=== PATIENT | female | born 1930 | race Asian ===

== ENCOUNTER 2021-05-21 21:00 | Inpatient (IN) | payer OTHER ==
[~2021-05-21] VITALS: Ht 160 cm; Wt 66.2 kg
[2021-05-21] MEDS ORDERED: IV NS 0.9% 1,000 ML BAG IV ONE (22:00)
[2021-05-21] MEDS ORDERED: MORPHINE SULFATE INJ 2 MG/ML DISP.SYRIN IV ONE (22:00)
[2021-05-21] MEDS ORDERED: ONDANSETRON HCL/PF 4 MG/2 ML VIAL IVP ONE (22:00)
--- NOTE | 2021-05-21 22:01 | NUR ---
IV LINE ESTABLISH L AC #20G AND CONVERTED TO SALINE LOCK. LABS WERE COLLECTED AND SENT.
[2021-05-21] MEDS ORDERED: ONDANSETRON HCL/PF 4 MG/2 ML VIAL ONE (22:09)
[2021-05-21] MEDS ORDERED: MORPHINE SULFATE INJ 4 MG/ML DISP.SYRIN ONE (22:09)
[2021-05-21 22:21] LABS: BILIRUBIN,URINE NEGATIVE (NEGATIVE); COLOR,URINE YELLOW (YELLOW); LEUKOCYTE ESTERASE ,URINE NEGATIVE (NEGATIVE); NITRITE, URINE NEGATIVE (NEGATIVE); PH,URINE 6.5 (5.0-8.0); PROTEIN,URINE 30 mg/dl (NEGATIVE); UGLUCOSE NEGATIVE (NEGATIVE); UROBILINOGEN,URINE 0.2 EU/dL (0.2)
[2021-05-21 22:24] LABS: BASOPHILS # (AUTO) 0.1 K/uL (0.0-0.2); BASOPHILS % (AUTO) 0.9 % (0.0-2.0); EOSINOPHILS % (AUTO) 0.4 % (0.0-6.0); HEMATOCRIT 43 % (33-45); HEMOGLOBIN 14.2 g/dL (11.5-14.8); LYMPHOCYTES # (AUTO) 0.8 K/uL (0.8-4.8); LYMPHOCYTES % (AUTO) 7.6 % (20.0-44.0); MEAN CORPUSCULAR HGB CONC 33 g/dl (31.0-36.0); MEAN CORPUSCULAR VOLUME 78 fL (82-100); MONOCYTES # (AUTO) 0.8 K/uL (0.1-1.30); MONOCYTES % (AUTO) 7.2 % (2.0-12.0); NEUTROPHILS # (AUTO) 8.9 K/uL (1.8-8.9); NEUTROPHILS % (AUTO) 83.9 % (43.0-81.0); PLATELET COUNT (AUTO) 207 K/uL (150-450); RED BLOOD CELL COUNT(AUTO) 5.56 MIL/uL (4.0-5.2); WHITE BLOOD COUNT (AUTO) 10.6 K/uL (4.3-11.0)
[2021-05-21 22:39] LABS: BACTERIA,URINE None seen /HPF (None Seen); MUCUS,URINE Few /LPF (None Seen); SQUAMOUS EPITHELIAL CELL,UR Few /HPF (None Seen); URINE AMORPHOUS URATE Moderate /HPF (None Seen); WBC,URINE 0-2 /HPF (0-3)
[2021-05-21 22:57] LABS: CALCIUM, SERUM 9.2 mg/dL (8.5-10.1); CARBON DIOXIDE 31 mmol/L (21-32); CHLORIDE 102 mmol/L (98-107); CREATININE 0.8 mg/dL (0.6-1.3); GLUCOSE 128 mg/dL (74-106); POTASSIUM 3.8 mmol/L (3.5-5.1); SODIUM SERUM 138 mmol/L (136-145); UREA NITROGEN, BLOOD 15 mg/dL (7-18)
[2021-05-21 23:03] LABS: ALANINE AMINOTRANSFERASE 28 U/L (12-78); ALBUMIN 3.7 g/dL (3.4-5.0); ALKALINE PHOSPHATASE 56 U/L (46-116); ASPARTATE AMINOTRANSFERASE 26 U/L (15-37); BILIRUBIN,DIRECT 0.2 mg/dL (0.0-0.2); BILIRUBIN,TOTAL 0.7 mg/dL (0.2-1.0); LIPASE 43 U/L (73-393); TOTAL PROTEIN, SERUM 7.4 g/dL (6.4-8.2)
[2021-05-21] MEDS ORDERED: IOHEXOL-300 100 ML VIAL IV ONE (23:09)
[2021-05-21] MEDS ORDERED: CT SWABBABLE VALVE TRANS SET 1 EA INFUS.SET MC ONE (23:09)
[2021-05-21] MEDS ORDERED: IV NS 0.9% 500 ML IV ONE (23:09)
--- NOTE | 2021-05-21 23:21 | NUR ---
PATIENT RETURNED FROM CT
[2021-05-22] MEDS ORDERED: KETOROLAC TROMETHAMINE 15 MG/ML VIAL ONE (00:12)
[2021-05-22] MEDS ORDERED: KETOROLAC TROMETHAMINE INJ 30 MG/ML VIAL IV ONE (00:30)
--- NOTE | 2021-05-22 00:44 | NUR ---
CALLED [facility] FOR CXR AND CT READ
--- NOTE | 2021-05-22 01:07 | NUR ---
Damon hernandez in [facility] - 05/22/21 at [address] FERNANDEZ ON THE PHONE W/ DR GUALLPA
--- NOTE | 2021-05-22 01:11 | NUR ---
PAGED DR MONROE, GENRAL SURGEON
[2021-05-22] MEDS ORDERED: PIPERACILLIN /TAZOBACTAM 2.25 G in IV D5W 50 ML IV ONE (01:30)
[2021-05-22] MEDS ORDERED: PIPERACILLIN /TAZOBACTAM 2.25 G VIAL IV ONE (01:36)
--- NOTE | 2021-05-22 02:23 | NUR ---
[facility] SWAB COLLECTED AND SENT TO LAB. PATIENT'S BELONGINGS LIST DONE.
[2021-05-22] MEDS ORDERED: ACETAMINOPHEN 325 MG TABLET PO PRN (02:30)
[2021-05-22] MEDS: ENOXAPARIN SODIUM 40 MG/0.4 ML DISP.SYRIN SQ SCH ×2 (02:30→20:18)
[2021-05-22] MEDS ORDERED: ONDANSETRON HCL/PF 4 MG/2 ML VIAL IVP PRN (02:30)
[2021-05-22] MEDS ORDERED: hydrALAZINE HCL IV 20 MG VIAL IV PRN (02:30)
[2021-05-22] MEDS ORDERED: MORPHINE SULFATE INJ 2 MG/ML DISP.SYRIN IV PRN (02:30)
[2021-05-22] MEDS ORDERED: MAGNESIUM HYDROXIDE 30 ML UDC PO PRN (02:30)
[2021-05-22] MEDS ORDERED: MAG HYDROX/AL HYDROX/SIMETH 30 ML UDC PO PRN (02:30)
--- NOTE | 2021-05-22 03:10 | NUR ---
held lovenox for possible sx. md beverley sanchez
[2021-05-22] MEDS: IV NS 0.9% 1,000 ML IV PRN ×2 (05:13→20:18)
[2021-05-22] MEDS: CEFEPIME 1 GM in IV D5W 50 ML IV SCH (09:00)
[2021-05-22] MEDS ORDERED: CHOL200010 PO (10:27)
[2021-05-22] MEDS ORDERED: DOCU100C58 PO (10:27)
[2021-05-22] MEDS ORDERED: ATOR10TA PO (10:27)
--- NOTE | 2021-05-22 10:36 | NUR ---
ECHOCARDIOGRAM ONGOING AT BEDSIDE
--- NOTE | 2021-05-22 18:55 | NUR ---
GOT BED 324-2 AFTER CHANGE OF SHIFT.
--- NOTE | 2021-05-22 19:36 | NUR ---
report given to jose day for santana
--- NOTE | 2021-05-22 19:40 | NUR ---
pt going up to unit on gurney with emt at bedside on stable condition.
[2021-05-22 20:00] VITALS: BP 143/80
--- NOTE | 2021-05-22 20:00 | NUR ---
MS/RN OPENING NOTE RECEIVED REPORT FROM SWINE NUTRITIONIST GENTRY. PATIENT ARRIVED TO UNIT VIA GURNEY AND STAFF MEMBER. PATIENT IS BEING ADMITTED WITH DX OF APPENDICITIS. PAST MEDICAL HX OF HTN AND HLD. FAMILY AT BEDSIDE. PATIENT IS ALERT AND ORIENTED X 4. PRIMARILY [place] SPEAKING. DENIES PAIN AT THIS TIME. CONTINUES ON ROOM AIR WITH NO S/SX OF RESPIRATORY DISTRESS NOTED. IV ACCESS TO LEFT HAND # 22G INTACT AND PATENT. ABDOMEN IS SOFT AND TENDER ON LLQ. SKIN CHECK PERFORMED ON ADMISSION WITH RED DISCOLORATIONS ON ABDOMEN AND CHEST. PICTURES TAKEN AND PLACED IN CHART. PATIENT TO BE NPO AT MIDNIGHT FOR POSSIBLE SURGERY AND CARDIOLOGY CONSULT IN AM. PATIENT AND FAMILY AWARE OF PLAN OF CARE. PATIENT ORIENTED TO ROOM, CALL LIGHT AND UNIT. CALL LIGHT WITHIN REACH. ASPIRATION, FALL AND SAFETY PRECAUTIONS MAINTAINED. WILL CONTINUE TO MONITOR. Addendum: 05/22/21 at 2050 by FALLON COATES RN CORRECTION: ABDOMEN IS SOFT AND TENDER TO RLQ.
--- NOTE | 2021-05-22 20:23 | NUR ---
MS/RN NOTE HOLDING LOVENOX FOR POSSIBLE SURGERY TOMORROW.
--- NOTE | 2021-05-22 21:28 | NUR ---
MS/RN NOTE PATIENTS QIPANTOS-JM-GDT TOEUP PHONE # [phone]. PATIENTS DAUGHTER AFSHIN PHONE # [phone]. STATED WE MAY CONTACT THEM AT ANY TIME. Addendum: 05/22/21 at 2131 by FALLON COATES RN AFSHIN IS PATIENTS SISTER - NOT DAUGHTER.
[2021-05-23] VITALS (7 sets, daily range): BP systolic 125–167; BP diastolic 65–89
[2021-05-23] MEDS: IV NS 0.9% 1,000 ML IV PRN ×2 (05:51→15:38)
--- NOTE | 2021-05-23 06:30 | NUR ---
MS/RN CLOSING NOTE PATIENT CURRENTLY SLEEPING IN BED. ALERT AND ORIENTED X 4. ABLE TO MAKE NEEDS KNOWN. DENIES PAIN AT THIS TIME. CONTINUES ON ROOM AIR WITH NO S/SX OF RESPIRATORY DISTRESS NOTED. IV ACCESS TO LEFT HAND #20G INTACT AND PATENT. CONTINUES ON IVF NS 0.9% @ 75ML/HR. CONTINUES ON IV ABX. CONTINUES ON NPO STATUS FOR POSSIBLE SURGERY TODAY. CALL LIGHT WITHIN REACH. ASPIRATION, FALL AND SAFETY PRECAUTIONS MAINTAINED. WILL CONTINUE TO MONITOR.
--- NOTE | 2021-05-23 07:30 | NUR ---
MS RN OPENING NOTES RECEIVED PATIENT SITTING ON BED, AWAKE AND A/O X 4. [place] SPEAKING WITH DAUGHTER AT BEDSIDE. ON ROOM AIR BREATHING EVENLY AND UNLABORED. WITH IV ACCESS TO LEFT HAND #20G WITH IVF NS 0.9% @ 75ML/HR INFUSING. ON NPO FOR LAPAROSCOPIC APPENDECTOMY POSSIBLE OPEN. SAFETY MEASURES IN PLACE. CALL LIGHT WITHIN REACH. BED ON LOWEST LOCKED POSITION, SIDE RAILS UP X2. WILL CONTINUE TO MONITOR.
[2021-05-23] MEDS ORDERED: ANESTHESIA TRAY IN PYXIS 1 EA TRAY MC ONE (08:34)
[2021-05-23] MEDS ORDERED: BUPIVACAINE 0.5 % PF 150 MG/30 ML VIAL ONE (08:35)
[2021-05-23 09:11] LABS: EOSINOPHILS % (AUTO) 1.9 % (0.0-6.0); HEMATOCRIT 40 % (33-45); HEMOGLOBIN 12.9 g/dL (11.5-14.8); LYMPHOCYTES # (AUTO) 0.9 K/uL (0.8-4.8); LYMPHOCYTES % (AUTO) 17.1 % (20.0-44.0); MEAN CORPUSCULAR HGB CONC 33 g/dl (31.0-36.0); MEAN CORPUSCULAR VOLUME 78 fL (82-100); MONOCYTES # (AUTO) 0.5 K/uL (0.1-1.30); NEUTROPHILS # (AUTO) 3.7 K/uL (1.8-8.9); PLATELET COUNT (AUTO) 185 K/uL (150-450); RED BLOOD CELL COUNT(AUTO) 5.07 MIL/uL (4.0-5.2); WHITE BLOOD COUNT (AUTO) 5.3 K/uL (4.3-11.0)
[2021-05-23 09:44] LABS: ALBUMIN 2.9 g/dL (3.4-5.0); BILIRUBIN,TOTAL 0.7 mg/dL (0.2-1.0); CALCIUM, SERUM 8.2 mg/dL (8.5-10.1); CREATININE 0.7 mg/dL (0.6-1.3); MAGNESIUM 2.1 mg/dL (1.8-2.4); PHOSPHORUS 2.8 mg/dL (2.5-4.9); POTASSIUM 3.5 mmol/L (3.5-5.1); TOTAL PROTEIN, SERUM 6.5 g/dL (6.4-8.2)
[2021-05-23] MEDS ORDERED: ROCURONIUM BROMIDE 50 MG/5 ML ONE (11:24)
[2021-05-23] MEDS ORDERED: HYDROMORPHONE INJ 2 MG/ML DISP.SYRIN ONE (11:24)
[2021-05-23] MEDS ORDERED: DESFLURANE 240 ML BOTTLE IH ONE (12:07)
[2021-05-23] MEDS ORDERED: HYDROCODONE/APAP 5/325MG TABLET PO PRN (14:00)
--- NOTE | 2021-05-23 18:57 | NUR ---
MS RN CLOSING NOTES PATIENT RESTING ON BED, AWAKE AND A/O X 4. FIJ[place] SPEAKING WITH DAUGHTER AT BEDSIDE. ON ROOM AIR BREATHING EVENLY AND UNLABORED. WITH IV ACCESS TO LEFT HAND #20G WITH IVF NS 0.9% @ 75ML/HR INFUSING. S/P APPENDECTOMY WITH STABLE VITAL SIGNS. SAFETY MEASURES IN PLACE. CALL LIGHT WITHIN REACH. BED ON LOWEST LOCKED POSITION, SIDE RAILS UP X2. WILL ENDORSE TO NEXT SHIFT FOR SATHISH.
--- NOTE | 2021-05-23 19:24 | NUR ---
MS RN OPENING NOTES RECEIVED PATIENT RESTING ON BED, AWAKE AND A/O X 4. [place] SPEAKING. PT. ON ROOM AIR BREATHING EVENLY AND UNLABORED. IN NO APPARENT DISTRESS NOTED. PT.WITH IV ACCESS TO LEFT HAND #20G WITH IVF NS 0.9% @ 75ML/HR INFUSING. PT. S/P APPENDECTOMY, IN STABLE CONDITION. SAFETY MEASURES IN PLACE. CALL LIGHT WITHIN REACH. BED ON LOWEST LOCKED POSITION, SIDE RAILS UP X2. WILL CONTINUE TO MONITOR PT. ACCDGLY.
[2021-05-23] MEDS: ENOXAPARIN SODIUM 40 MG/0.4 ML DISP.SYRIN SQ SCH (21:45)
[2021-05-24] MEDS: IV NS 0.9% 1,000 ML IV PRN (06:20)
--- NOTE | 2021-05-24 07:07 | NUR ---
MS RN CLOSING NOTES PATIENT RESTING ON BED, AWAKE AND A/O X 4. [place] SPEAKING. PT. ON ROOM AIR BREATHING EVENLY AND UNLABORED. IN NO APPARENT DISTRESS NOTED. PT.WITH IV ACCESS TO LEFT HAND #20G WITH IVF NS 0.9% @ 75ML/HR INFUSING. PT. S/P APPENDECTOMY, IN STABLE CONDITION. ALL NEEDS ATTENDED. SAFETY MEASURES IN PLACE. CALL LIGHT WITHIN REACH. BED ON LOWEST LOCKED POSITION, SIDE RAILS UP X2. WILL ENDORSED PT. TO DAYTIME SHIFT NURSE FOR SATHISH
[2021-05-24 07:14] LABS: CALCIUM, SERUM 8.5 mg/dL (8.5-10.1); CREATININE 0.7 mg/dL (0.6-1.3)
--- NOTE | 2021-05-24 07:30 | NUR ---
MS RN OPENING NOTES RECEIVED PATIENT ON BED, RESTING ON BED AND A/O X4. CITIZEN OF [place] SPEAKING. ON ROOM AIR BREATHING EVENLY AND UNLABORED. WITH NO COMPLAINTS OF PAIN AT THIS TIME. WITH IV ACCESS AT LEFT HAND G20 WITH NS AT 75ML/HR INFUSING WELL. SAFETY MEASURES IN PLACE. CALL LIGHT WITHIN REACH. BED ON LOWEST LOCKED POSITION, SIDE RAILS UP X2. WILL CONTINUE TO MONITOR.
[2021-05-24 08:00] VITALS: BP 155/78
[2021-05-24] MEDS: CEFEPIME 1 GM in IV D5W 50 ML IV SCH (08:26)
[2021-05-24 08:46] LABS: BASOPHILS % (AUTO) 0.7 % (0.0-2.0); EOSINOPHILS % (AUTO) 0.6 % (0.0-6.0); HEMATOCRIT 39 % (33-45); HEMOGLOBIN 12.5 g/dL (11.5-14.8); LYMPHOCYTES % (AUTO) 16.4 % (20.0-44.0); MEAN CORPUSCULAR HGB CONC 32 g/dl (31.0-36.0); MEAN CORPUSCULAR VOLUME 78 fL (82-100); MONOCYTES # (AUTO) 0.7 K/uL (0.1-1.30); MONOCYTES % (AUTO) 10.8 % (2.0-12.0); NEUTROPHILS # (AUTO) 4.5 K/uL (1.8-8.9); NEUTROPHILS % (AUTO) 71.5 % (43.0-81.0); PLATELET COUNT (AUTO) 200 K/uL (150-450); RED BLOOD CELL COUNT(AUTO) 5.01 MIL/uL (4.0-5.2); WHITE BLOOD COUNT (AUTO) 6.3 K/uL (4.3-11.0)
[2021-05-24] MEDS ORDERED: HYDR-3972 PO (13:21)
--- NOTE | 2021-05-24 17:50 | NUR ---
MS RETORT LOAD EXPEDITER NOTES PATIENT WAS SEEN BY DR. DIAMOND AND ORDERED PATIENT FOR DISCHARGE TO HOME. DISCHARGE INSTRUCTION AND EDUCATION PROVIDED TO PATIENT AND EXPLAINED MEDICATIONS AND PRESCRIPTIONS. PATIENT VERBALIZED UNDERSTANDING. DISCHARGE FORM AND BELONGINGS LIST FORM SIGNED BY PATIENT. ALL BELONGINGS ACCOUNTED FOR. NAME WRIST BAND AND IV LINE REMOVED. PATIENT WAS ACCOMPANIED TO THE LOBBY VIA WHEELCHAIR. ASSISTED PATIENT TO THE LOBBY VIA WHEELCHAIR AND WAS PICKED UP BY DAUGHTER IN STABLE CONDITION. MD AND CHARGE NURSE ARE AWARE OF THE DISCHARGE.
--- NOTE | 2021-05-24 18:54 | NUR ---
MS DOMINGUEZPRODUCTION CONSULTANT NOTES PATIENT WAS SEEN BY DR. DIAMOND AND ORDERED PATIENT FOR DISCHARGE TO HOME. DISCHARGE INSTRUCTION AND EDUCATION PROVIDED TO PATIENT AND EXPLAINED MEDICATIONS AND PRESCRIPTIONS. PATIENT VERBALIZED UNDERSTANDING. DISCHARGE FORM AND BELONGINGS LIST FORM SIGNED BY PATIENT. ALL BELONGINGS ACCOUNTED FOR. NAME WRIST BAND AND IV LINE REMOVED. PATIENT WAS ACCOMPANIED TO THE LOBBY VIA WHEELCHAIR. ASSISTED PATIENT TO THE LOBBY VIA WHEELCHAIR AND WAS PICKED UP BY DAUGHTER IN STABLE CONDITION. MD AND CHARGE NURSE ARE AWARE OF THE DISCHARGE. Addendum: 05/24/21 at 1943 by RAVI ROJO RN ERROR
== END 2021-05-24 17:50 | disposition home or self-care (01) | DRG 343 ==
LOC: ER 21:06 → TRANSITION 05-22 02:50 → MED 05-22 19:19
PROVIDERS: ADMIT Nurse Practitioner Acute Care; ATTEND Internal Medicine
PROC: 0DTJ4ZZ Resection of Appendix, Percutaneous Endoscopic Approach (ICD-10-PCS; principal; 2021-05-23)
DX: K35.30 Acute appendicitis with localized peritonitis, without perforation or gangrene (principal); E78.5 Hyperlipidemia, unspecified; K21.9 Gastro-esophageal reflux disease without esophagitis; Z20.822 Contact with and (suspected) exposure to COVID-19; I10 Essential (primary) hypertension
CPT/HCPCS: 36415; 71045-TC; 80048-TC; 80053-TC; 80076-TC; 81001; 83690-TC; 83735-TC; 84100-TC; 84484-TC; 85025-TC; 85730-TC; 86850-TC; 87081-TC; 88304-TC; 93307-TC; G0378; J0692; J1170; J1650; J1885; J2270; J2405; J2543; J3490; J7030; J7040; J7060; Q9967